=== PATIENT | female | born 1990 | race Caucasian/White ===

== ENCOUNTER 2023-11-30 18:57 | Emergency (ER) | payer SELFPAY ==
--- NOTE | ~2023-11-30 | XR_ITS ---
EXAMINATION: XR CHEST CLINICAL INFORMATION: Cough and fever. COMPARISON: Chest radiographs dated 04/30/2016. TECHNIQUE: Frontal and lateral views of the chest were obtained. FINDINGS: The heart, great vessels, pulmonary vasculature and mediastinum are stable. Lung volumes are diminished, there is mild elevation the right hemidiaphragm. There is increase in central interstitial markings, right greater than left. No infiltrate, effusion or pneumothorax is seen. There is no acute osseous abnormality XR/XR chest 2V IMPRESSION: No focal infiltrate or congestive heart failure is seen. Lung volumes are diminished, and there is elevation of the right hemidiaphragm. There is increase in central interstitial markings, right greater than left, raising the possibility of an atypical viral pneumonia. Recommend short-term follow-up chest radiographs at a greater depth of inspiration to ensure clearance. Electronically signed by: Micheal Odonnell MD 11/30/2023 10:36 PM EDT
[2023-11-30 19:10] VITALS: BP 125/72; PULSE 102; RESP 19; TEMP 37.9; O2SAT 99; BMI 35.9
--- NOTE | 2023-11-30 19:12 | ED.URI ---
HPI - URI/Sore Throat General Chief Complaint: Upper Respiratory Symptoms Stated Complaint: fever Time Seen by Provider: 11/30/23 23:12 Source: patient and RN notes reviewed Mode of arrival: ambulatory Limitations: no limitations History of Present Illness ED Provider: Reta Parsons PA-C HPI Narrative: This is a 33-year-old female, with a past medical history of asthma, who presents emergency department with complaints of cough, chills, and chest wall pain. Patient states that since Tuesday she has felt subjective fevers, chills, cough, and mild shortness for breath. She states that she is also having a slightly sore throat. She reports that the chest pain is constant and worsens with cough as well as with palpation overlying her chest wall. She denies any palpitations. She denies any blurred vision, severe headache, congestion, abdominal pain, nausea, vomiting or diarrhea. She has been taking Excedrin, and ibuprofen which has provided her with some relief. She states that she has been in contact with multiple sick individuals with similar symptoms. Denies increased use of inhalers. No other complaints or concerns at this time. MD elicited complaint: cough and sore throat Pertinent past history: asthma Onset (ago): day(s) Consistency: constant Severity: moderate Able to tolerate fluids by mouth: Yes Exacerbating factors: nothing Relieving factors: NSAID Context: sick contacts Associated symptoms: sore throat, cough and shortness of breath Treatments prior to arrival: none Related Data Previous Rx's ?Medication ?Instructions ?Recorded acetaminophen 500 mg tablet 1,000 mg (2 x 500 mg) PO Q8H PRN 11/30/23 (Tylenol Extra Strength) pain #30 tabs albuterol sulfate 2.5 mg/0.5 mL 5 mg inhalation Q4H #30 ea 11/30/23 solution for nebulization albuterol sulfate 90 mcg/actuation 2 puff inhalation 6XD PRN 11/30/23 aerosol inhaler shortness of breath or wheezing #8.5 grams azithromycin 250 mg tablet 250 mg PO DAILY 4 days #4 tabs 11/30/23 Allergies Allergy/AdvReac Type Severity Reaction Status Date / Time No Known Allergies Allergy Unverified 11/01/19 16:16 [No Known Allergies*] ibuprofen AdvReac Unknown low Verified 11/30/23 19:11 platelets Review of Systems Review of Systems: Yes all other systems are reviewed and are negative Constitutional: Constitutional: Reports as per [facility] Social History Social History Advance Directives: No Advance Directives Information Provided: No Do you have a plan to hurt others: No Plan Physical Exam Vital Signs: Vital Signs: Last Vital Signs Temp 98.3 F 11/30/23 23:41 Pulse 89 11/30/23 23:41 Resp 16 11/30/23 23:41 BP 124/85 11/30/23 23:41 Pulse Ox 100 11/30/23 23:41 O2 Del Method Room Air 11/30/23 23:41 BMI result Body Mass Index 35.9 Const: General: cooperative, comfortable and no acute distress Orientation/consciousness: patient oriented x3 Limitations: no limitations HEENT: Head: Yes normal to inspection, Yes normocephalic and Yes atraumatic Ears: hearing grossly normal bilaterally and TM's normal bilaterally General nose exam: Normal external nose present Face and sinus: Yes normal facial exam Mouth: Normal oral and palatal mucosa present, oropharynx normal and moist mucous membranes Throat: Yes posterior oropharynx normal, Yes tonsils normal and Yes uvula midline Eyes: General: appearance normal, both eyes and all related structures Eyelids: Yes eyelids normal Conjunctivae: conjunctivae normal Sclerae: sclerae normal Pupils: Equal, round and reactive pupils present EOM: EOMs intact bilaterally Neck: Neck: Yes normal visual inspection, Yes full ROM and Yes no lymphadenopathy Lymphatic: no lymphadenopathy noted Chest: Other: Reproducible chest wall tenderness on examination. Chest palpation & inspection: normal inspection of the chest Resp: Effort & Inspection: normal respiratory effort and able to speak in complete sentences Auscultation: clear to auscultation bilaterally, no crackles, no rales, no rhonchi and no wheezes Cardio: Rate: regular rate Rhythm: regular rhythm Heart sounds: S1 normal heart sound present and S2 normal heart sound present GI: Inspection: Yes normal to inspection Skin: General skin exam: no rashes or lesions noted Trauma: no lacerations or abrasions Wounds: no wounds Neuro: General: patient oriented x3 and moves all extremities Cranial nerves: Yes Equal, round and reactive pupils present Extrem: General: Yes normal to inspection Right upper extremity: normal to inspection Left upper extremity: normal to inspection Right lower extremity: normal to inspection Left lower extremity: normal to inspection Course Course Course Narrative: This is a Rapid Medical Examination (RME) performed by Kirt Bishop PA-C in triage. Full HPI, ROS, assessment and treatment plan per primary provider in the Main ED. 33 yo female hx of asthma here for eval of cough, chills, chest wall pain on coughing, and fevers x24 hours. hx of asthma, using her neb at home with improvement. took 800mg motrin 1 hour [employer] in ED. + lungs clear. active cough. Plan: viral swabs, cxr Medications Administered Discontinued Medications Generic Name Dose Route Start Last Admin Trade Name Freq PRN Reason Stop Dose Admin Acetaminophen 975 mg 11/30/23 23:28 11/30/23 23:35 Acetaminophen 325 Mg Tablet PO 11/30/23 23:29 975 mg ONCE ONE Administration Azithromycin 500 mg 11/30/23 23:28 11/30/23 23:35 Azithromycin 500 Mg Tablet PO 11/30/23 23:29 500 mg ONCE ONE Administration Medical Decision Making Medical Decision Making [facility] Narrative: This is a 33-year-old female, with a history of asthma, who presents emergency department with complaints of dry cough, chills, and constant chest wall pain for the last 3 days. Prior to my assessment, patient was tested for flu, RSV, and COVID. These were negative. Chest x-ray findings concerning for atypical pneumonia. Vital signs revealing as she is afebrile, normotensive, and not tachycardic. She is speaking in full sentences under no acute distress. She has no other comorbidities other than asthma. Her lungs are clear to auscultation bilaterally. Chest pain is reproducible on examination. Less likely ACS and presentation. Will treat as a pneumonia, treated with azithromycin, and given strict return precautions. Her lungs are clear at this time, not requiring any additional treatments in the department today. She understands and agrees with plan. Patient stable for discharge. Differential Diagnosis Differential Diagnoses: The differential diagnosis associated with the presentation includes URI, bronchitis, pneumonia, COVID Admission/Observation Consideration of admission/observation: Escalation of care including admission/observation considered Lab Data [facility] Lab Attestation statement: I reviewed the patient's lab results. Negative Labs: Lab Results 11/30/23 Range/Units 20:22 Influenza Type A (PCR) NEGATIVE (Negative) Influenza Type B (PCR) NEGATIVE (Negative) RSV RNA Qual (PCR) NEGATIVE (Negative) SARS-CoV-2 RNA (RT-PCR) NEGATIVE (Negative) Radiology Impression Discussion of test interpretation with radiology: I have reviewed the radiologist's reading. Radiologist Impression: XR/XR chest 2V IMPRESSION: No focal infiltrate or congestive heart failure is seen. Lung volumes are diminished, and there is elevation of the right hemidiaphragm. There is increase in central interstitial markings, right greater than left, raising the possibility of an atypical viral pneumonia. Recommend short-term follow-up chest radiographs at a greater depth of inspiration to ensure clearance. Electronically signed by: Micheal Odonnell MD 11/30/2023 10:36 PM EDT RP Dictated By: Micheal Odonnell MD Discharge Plan Discharge Clinical Impression: Pneumonia Patient Disposition: Home, Self-Care Instructions: Community Acquired Pneumonia (ED) Additional Instructions: You were seen in the emergency department today in your chest x-ray is concerning for pneumonia. We gave you your 1st dose of the antibiotic in the department. Please start this tomorrow 11/30. Finish the entire course even if your symptoms improve. Drink plenty of fluids get plenty of rest. Alternate between ibuprofen and Tylenol as needed for pain and symptoms. If any new or worsening symptoms occur including but not limited to worsening chest pain, shortness of breath, please seek emergent care. Follow-up with a primary care physician, I gave you a referral to the [facility]. Please have repeat chest x-ray in 4 weeks. Prescriptions: New azithromycin 250 mg tablet 250 mg PO DAILY 4 Days Qty: 4 0RF Rx Instructions: start on day 2 of therapy acetaminophen [Tylenol Extra Strength] 500 mg tablet 1,000 mg PO Q8H PRN (Reason: pain) Qty: 30 0RF albuterol sulfate 90 mcg/actuation HFA aerosol inhaler 2 puff inhalation 6XD PRN (Reason: shortness of breath or wheezing) Qty: 8.5 0RF albuterol sulfate 2.5 mg/0.5 mL solution for nebulization 5 mg inhalation Q4H Qty: 30 0RF Stand Alone Forms: Work/School Release Interventions: ED Discharge Assessment Last Done: 11/30/23 23:41 Discharge Date/Time: 11/30/23 23:44 Print Language: Greenlandic
[2023-11-30 21:10] LABS: Influenza A PCR NEGATIVE (Negative); Influenza B PCR NEGATIVE (Negative); Resp Syncy Virus RNA Qual PCR NEGATIVE (Negative); SARS COV2 PCR INHOUSE NEGATIVE (Negative)
[2023-11-30 22:14] VITALS: TEMP 36.7
[2023-11-30] MEDS: Acetaminophen 325 MG TABLET 975 MG PO (23:35)
[2023-11-30] MEDS: Azithromycin 500 MG TABLET PO (23:35)
[2023-11-30 23:39] VITALS: BP 124/85; PULSE 89; RESP 16; TEMP 36.8; O2SAT 100
[2023-11-30 23:41] VITALS: BP 124/85; PULSE 89; RESP 16; TEMP 36.8; O2SAT 100
== END 2023-11-30 23:44 | disposition home or self-care (01) ==
PROVIDERS: Physician Assistant Medical; Emergency Provider Emergency Medicine
DX: J18.9 Pneumonia, unspecified organism (principal); R50.9 Fever, unspecified; J02.9 Acute pharyngitis, unspecified; Z03.818 Encounter for observation for suspected exposure to other biological agents ruled out; J45.909 Unspecified asthma, uncomplicated
CPT/HCPCS: 0241U; 71046; 99283; 99284